=== PATIENT | female | born 1980 | race Caucasian/White ===

== ENCOUNTER 2021-05-18 07:16 | Day surgery (SDC) | payer BC ==
[2021-05-18] MEDS ORDERED: Ringers Lactate 1,000 ML IV ONE (07:30)
[2021-05-18] MEDS ORDERED: CELECOXIB 100 MG CAPSULE ONE (07:56)
[2021-05-18] MEDS ORDERED: ACETAMINOPHEN 500 MG TAB ONE (07:56)
[2021-05-18] MEDS ORDERED: LIDOCAINE 2% MPF 5 ML VIAL ONE (08:06)
[2021-05-18] MEDS ORDERED: propofoL 200 MG/20 ML VIAL IV ONE ×2 (08:06→10:01)
[2021-05-18] MEDS ORDERED: ROCURONIUM 50 MG/5 ML VIAL IV ONE ×3 (08:06→12:11)
[2021-05-18] MEDS ORDERED: FENTANYL CITR 100 MCG/2 ML ONE ×4 (08:06→13:34)
[2021-05-18] MEDS ORDERED: MIDAZOLAM HCL 2 MG/2 ML INJ ONE ×2 (08:06→10:02)
[2021-05-18] MEDS ORDERED: GLYCOPYRROLATE 0.2 MG/ML SYR ONE (08:06)
[2021-05-18] MEDS ORDERED: LIDOCAINE 1% MPF 5 ML VIAL ONE (10:02)
[2021-05-18] MEDS ORDERED: LIDOCAINE JELLY 2%- 5 ML TUBE ONE (10:04)
[2021-05-18] MEDS ORDERED: EPINEPHRINE/PF 1 MG/ML AMP ONE (10:17)
[2021-05-18] MEDS ORDERED: OXYMETAZOLINE HCL 0.05% 15ML NAS ONE ×2 (10:17→11:05)
[2021-05-18] MEDS ORDERED: NA CHLORIDE 0.9% 1,000 ML ONE (10:18)
[2021-05-18] MEDS ORDERED: SUGAMMADEX SODIUM 200 MG/2 ML VIAL IV ONE (10:23)
[2021-05-18] MEDS: LIDOCAINE 1% W/EPI 1:100,000 MDV 20 ML VIAL ONE ×2 (10:44→12:15)
[2021-05-18] MEDS ORDERED: dexAMETHasone 10 MG/ML VIAL ONE (11:32)
[2021-05-18] MEDS ORDERED: KETOROLAC 30 MG/ML INJ ONE (11:32)
[2021-05-18] MEDS ORDERED: ONDANSETRON 4 MG/2 ML VIAL ONE ×2 (11:40→13:34)
[2021-05-18] MEDS ORDERED: NS 0.9% VIAL 10 ML ONE (13:06)
[2021-05-18] MEDS ORDERED: CEFAZOLIN SODIUM 1 GM/VIAL ONE (13:22)
[2021-05-18 13:55] VITALS: O2SAT 98
[2021-05-18] MEDS ORDERED: CODEINE 12mg/APAP 120mg PER 5 ML UCUP PO ONE (15:00)
[2021-05-18 16:19] VITALS: TEMP 97
[2021-05-18 16:21] VITALS: BP 135/85
--- NOTE | 2021-05-19 22:04 | OP ---
Date of Procedure: 05/18/2021 Surgeon: OSBALDO JIMENEZ Preoperative Diagnoses: 1.Bilateral nasal and sinus polyps. 2.Deviated nasal septum. 3.Chronic bilateral maxillary sinusitis. Postoperative Diagnoses: 1.Bilateral nasal and sinus polyps. 2.Deviated nasal septum. 3.Chronic bilateral maxillary sinusitis. Procedure: 1.Bilateral diagnostic sinus endoscopy with nasal polypectomies. 2.Bilateral maxillary antrostomies. 3.Bilateral maxillary sinus lavage via [employer] [place] lavage system. 4.Septoplasty. 5.[employer] image guidance system utilized throughout the procedure. Anesthesia: General endotracheal anesthesia was administered. I also infiltrated approximately 12 t o 15 mL of 1% lidocaine with 1:100,000 epinephrine into bilateral nasal septal mucosa as well as the axilla of bilateral middle turbinates and bilateral uncinate processes as well as bilateral nasal rosemary yps. Estimated Blood Loss: Approximately 25-50 mL. Specimens: None. Findings: Bilateral nasal obstruction secondary to polyps involving bilateral middle meatus, but als o adherent to the nasal septal wall and extending posteriorly into the ethmoids and sphenoid sinuses and superiorly into the bilateral frontal recesses. There is also mucopurulent secretions in bilater al maxillary sinuses with significant osteitis and stenosis of ostial openings. [id number] r ight nasal septal deviation inhibiting me from being able to access the polyps. Patient had caudal/i nferior septal spur involving the right nasal septum and then mid septal deviation involving the supe rior septum, which was moderate to severe and abutting the middle turbinates. Complications: None. Disposition: Stable. The patient tolerated the procedure well. Indication For Procedure: Patient is a pleasant an is 41-year-old female who had bilateral nasal obs truction, which was secondary to extensive intranasal polyposis, which was detected on nasal endoscop y exam in my office as well as via the CAT scan of the sinuses. This condition has been refractory t o multiple rounds of intranasal medications as well as antibiotics and steroids. These are indicatio ns to bring the patient to proceed for the above-mentioned procedure. She understood. All questions were answered. Risks versus benefits and complications were explained. The consent form signed and placed in the chart. Description Of Procedure: Patient was transferred from the Department of Anesthesia into the operati ng room and placed on operating tube table supine, sedated, intubated in normal fashion. Table was r otated 180 degrees and the patient was calibrated to the [employer] [place] image guidance system and a ll points were checked for calibration and they were accurate. Intranasal mucosa was decongested and vasoconstricted with Afrin-soaked nasal pledgets. I also infiltrated approximately 5 mL of 1% lidoc juan diego with 1:100,000 epinephrine into bilateral nasal septal mucosa. Patient was then prepped and esperanza ped. The pledgets were removed from bilateral nasal cavities and utilizing a 0 degree rigid nasal endoscop e. The scope was advanced along the floor of bilateral nasal cavities. I was unable to advance my s cope beyond the mid septal region involving the right nasal cavity secondary to moderate/severe nasal obstruction secondary to nasal septal deviation. Thus, I started on the left side. I infiltrated a pproximately 5 mL of 1% lidocaine with 1:100,000 epinephrine into the large polypoid tissues located in the posterior left nasal cavity, uncinate process, and axilla of the middle turbinate. I then uti lized a 4.3 mm microdebrider blade to perform polypectomies of the extensive nasal polyposis involvin g the entire posterior of the left nasal cavity. The polypoid tissue involved the sphenoid ethmoidal recess and extending up into the frontal recess and into the left maxillary ostial opening. It then extended posteriorly to the sphenoid sinus rostrum opening as well as the nasopharynx and also media l to the middle turbinate adherent to the nasal septum. Once the polypoid tissue was removed, I enla rged the left maxillary opening with the microdebrider blade and then inserted a [employer] lavage marisel ter into the left maxillary sinus and lavage the left maxillary sinus with approximately 60 to 80 cc of sterile saline. I then suctioned mucoid contents utilizing an olive-tip suction. Once the polypo id tissue was removed, I removed my microdebrider blade and scope. Next, my attention was placed to the septum. I made incisions into the right nasal septal mucosa whe re the spur was located as well as the superior deflection noted more posteriorly. These obstructive cartilage and bone areas were removed with Jim forceps and sickle knife. I then was able to e asily advance the scope along the floor back to the nasopharynx. Patient had extensive nasal polypos is involving the same areas of the left nasal cavity with an almost atrophic right middle turbinate s econdary to the compression of the polyps. These polyps were adherent to the right nasal septal wall as well as extending to the sphenoethmoidal recess and the right frontal recess as well and is occlu ding the right middle meatus. These polyps were removed with a 4.3 microdebrider blade and then maxi llary antrostomy was performed and then subsequent lavage with the [employer] lavage system was performe d. Residual mucoidal contents were removed from the right maxillary sinus. I then reapproximated th e nasal septal mucosal flaps with 4.0 plain gut suture on a straight Kumar needle in a continuous run charli fashion. I then inserted the [employer] implants into bilateral middle meati followed by xerogel he mostatic agent, which was inserted into bilateral middle meatus for hemostasis. Mendez splints coated with antibiotic were cut to size and inserted bilaterally and secured to the caudal septum with a 3- 0 Ethilon suture. A mustache dressing was placed. She tolerated the procedure well and will be disc harged home on antibiotics and analgesic medication and will follow up in 1 week or sooner if needed. MIGUEL/OREN Voice ID: [id number] Report ID: [id number]
== END 2021-05-18 16:00 | disposition home or self-care (01) ==
LOC: OR 07:16
PROVIDERS: ATTEND Otolaryngology Facial Plastic Surgery
PROC: 09BK8ZX Excision of Nasal Mucosa and Soft Tissue, Via Natural or Artificial Opening Endoscopic, Diagnostic (ICD-10-PCS; 2021-05-18)
PROC: 099R8ZZ Drainage of Left Maxillary Sinus, Via Natural or Artificial Opening Endoscopic (ICD-10-PCS; 2021-05-18)
PROC: 099Q8ZZ Drainage of Right Maxillary Sinus, Via Natural or Artificial Opening Endoscopic (ICD-10-PCS; 2021-05-18)
PROC: 09BM8ZZ Excision of Nasal Septum, Via Natural or Artificial Opening Endoscopic (ICD-10-PCS; 2021-05-18)
PROC: 09BR8ZZ Excision of Left Maxillary Sinus, Via Natural or Artificial Opening Endoscopic (ICD-10-PCS; 2021-05-18)
PROC: 09BQ8ZZ Excision of Right Maxillary Sinus, Via Natural or Artificial Opening Endoscopic (ICD-10-PCS; 2021-05-18)
PROC: 8E09XBZ Computer Assisted Procedure of Head and Neck Region (ICD-10-PCS; principal; 2021-05-18 08:30)
DX: J33.8 Other polyp of sinus (principal); J32.4 Chronic pansinusitis; J34.89 Other specified disorders of nose and nasal sinuses; J30.1 Allergic rhinitis due to pollen; J34.2 Deviated nasal septum; J34.3 Hypertrophy of nasal turbinates; Z20.822 Contact with and (suspected) exposure to COVID-19
CPT/HCPCS: 61782; 30520; 31267; 81025; U0003; J2704; J2250; J3010 ×3; J1100; J7120; J7040; J2405 ×2; J0690; J0171